=== PATIENT | female | born 1945 | race Caucasian/White ===

== ENCOUNTER → 2019-09-26 14:13 | Outpatient (BNVA) | payer MEDICARE, SELFPAY | PROVIDERS: Visit Provider Nurse Practitioner Family | DX: I10 Essential (primary) hypertension (principal); E11.9 Type 2 diabetes mellitus without complications; E78.5 Hyperlipidemia, unspecified | CPT/HCPCS: 80053; 80061; 82044; 83036; 84439; 84443 ==

== ENCOUNTER → 2020-10-27 09:46 | Outpatient (BNVA) | payer MEDICARE, SELFPAY | PROVIDERS: Visit Provider Nurse Practitioner Family | DX: E11.9 Type 2 diabetes mellitus without complications (principal); E78.5 Hyperlipidemia, unspecified; I10 Essential (primary) hypertension | CPT/HCPCS: 80053; 80061; 83036; 84439; 84443; 85025 ==

== ENCOUNTER → 2021-11-03 12:55 | Outpatient (BNVA) | payer MEDICARE, SELFPAY | PROVIDERS: Visit Provider Nurse Practitioner Family | DX: I10 Essential (primary) hypertension (principal); E11.9 Type 2 diabetes mellitus without complications; Z68.32 Body mass index [BMI] 32.0-32.9, adult | CPT/HCPCS: 80053; 80061; 82043; 83036; 84443; 85025 ==

== ENCOUNTER → 2022-11-09 16:37 | Outpatient (BNVA) | payer MEDICARE, SELFPAY | PROVIDERS: PCP Nurse Practitioner Family; Visit Provider Nurse Practitioner Family | DX: E11.9 Type 2 diabetes mellitus without complications (principal); I10 Essential (primary) hypertension | CPT/HCPCS: 80053; 80061; 82043; 83036; 84443 ==

== ENCOUNTER → 2024-02-18 11:30 | Outpatient (BNVA) | payer MEDICARE, SELFPAY | PROVIDERS: PCP Nurse Practitioner Family; Visit Provider Nurse Practitioner Family | DX: I10 Essential (primary) hypertension (principal); E11.9 Type 2 diabetes mellitus without complications | CPT/HCPCS: 80053; 80061; 82043; 83036 ==

== ENCOUNTER → 2024-09-19 10:00 | Outpatient (BNVA) | payer MEDICARE, SELFPAY | PROVIDERS: PCP Nurse Practitioner Family; Visit Provider Nurse Practitioner Family | DX: I10 Essential (primary) hypertension (principal); E11.9 Type 2 diabetes mellitus without complications; M25.561 Pain in right knee; G89.29 Other chronic pain | CPT/HCPCS: 80053; 80061; 82043; 83036 ==

== ENCOUNTER → 2024-09-26 10:54 | Outpatient (BNVA) | payer MEDICARE, SELFPAY | PROVIDERS: PCP Nurse Practitioner Family; Visit Provider Orthopaedic Surgery | DX: M25.561 Pain in right knee (principal); G89.29 Other chronic pain | CPT/HCPCS: 20610; 73560; 73565; 99204; J3301; J3490 ==

== ENCOUNTER → 2024-10-17 08:55 | Outpatient (BNVA) | payer MEDICARE, SELFPAY | PROVIDERS: PCP Nurse Practitioner Family; Visit Provider Orthopaedic Surgery | DX: M25.561 Pain in right knee (principal); G89.29 Other chronic pain | CPT/HCPCS: 99213 ==

== ENCOUNTER → 2024-12-30 09:32 | Outpatient (BNVA) | payer MEDICARE, SELFPAY | PROVIDERS: PCP Nurse Practitioner Family; Visit Provider Student in an Organized Health Care Education/Training Program | DX: M25.561 Pain in right knee (principal); G89.29 Other chronic pain | CPT/HCPCS: 99213 ==

== ENCOUNTER 2025-01-01 11:05 | Outpatient (CLI) | payer MEDICARE, SELFPAY ==
--- NOTE | 2025-01-01 16:00 | MR_ITS ---
WS: [id number] MRI RIGHT KNEE HISTORY: right knee pain COMPARISON: Radiograph 09/26/2024 Anterior cruciate ligament: Intact. Posterior cruciate ligament: Intact. Medial collateral ligament: Intact. Posterior lateral corner structures: Intact. Medial menisci: Intact. Normal signal, size and shape. Lateral meniscus: Intact. Normal signal, size and shape. Extensor mechanism: Distal quadriceps tendon and patellar tendons are intact. Fluid and soft tissue: Small Espana's cyst. No joint effusion. Osseous and articular structures: Patellofemoral compartment: Mild narrowing of the patellofemoral joint with intact cartilage. Medial compartment: Very mild narrowing of the medial compartment with fissuring of the cartilage. No marrow edema. Lateral compartment: Minimal narrowing of the lateral compartment. Lobulated low signal bone lesion in the femoral condyle measures 4.2 mm and likely a bone island. Incidental note is made of a bone infarct in the distal femoral diaphysis. Small amount of edema in the popliteus muscle near the tibiofibular articulation. MR/MR knee RT wo con* [id number] IMPRESSION: 1. No meniscal tear identified. 2. No joint effusion. 3. Small Espana's cyst. 4. Mild narrowing of the medial and lateral compartments. 5. Mild tibiofibular joint space narrowing with a small amount of adjacent teresita ma in the popliteus muscle. 6. Distal femoral diaphysis bone infarct.
== END 2025-01-01 11:06 | disposition home or self-care (01) ==
PROVIDERS: PCP Nurse Practitioner Family; Visit Provider Student in an Organized Health Care Education/Training Program
DX: M71.21 Synovial cyst of popliteal space [Baker], right knee (principal); M87.851 Other osteonecrosis, right femur; G89.29 Other chronic pain
CPT/HCPCS: 73721

== ENCOUNTER → 2025-01-27 11:08 | Outpatient (BNVA) | payer MEDICARE, SELFPAY | PROVIDERS: PCP Nurse Practitioner Family; Visit Provider Student in an Organized Health Care Education/Training Program | DX: M25.551 Pain in right hip (principal); M25.561 Pain in right knee; G89.29 Other chronic pain; M17.11 Unilateral primary osteoarthritis, right knee; Z09 Encounter for follow-up examination after completed treatment for conditions other than malignant neoplasm; M16.11 Unilateral primary osteoarthritis, right hip | CPT/HCPCS: 20610; 73502; 99214; J3301; J9999 ==

== ENCOUNTER → 2025-02-20 11:00 | Outpatient (BNVA) | payer MEDICARE, SELFPAY | PROVIDERS: PCP Nurse Practitioner Family; Visit Provider Student in an Organized Health Care Education/Training Program | DX: M16.11 Unilateral primary osteoarthritis, right hip (principal) | CPT/HCPCS: 20610; 77002; J3301; J9999 ==

== ENCOUNTER → 2025-04-29 10:34 | Outpatient (BNVA) | payer MEDICARE, SELFPAY | PROVIDERS: PCP Nurse Practitioner Family; Visit Provider Student in an Organized Health Care Education/Training Program | DX: M17.11 Unilateral primary osteoarthritis, right knee (principal); Z71.89 Other specified counseling | CPT/HCPCS: 20610; 99213; J3301; J9999 ==

== ENCOUNTER → 2025-05-27 13:28 | Outpatient (BNVA) | payer MEDICARE, SELFPAY | PROVIDERS: PCP Nurse Practitioner Family; Visit Provider Student in an Organized Health Care Education/Training Program | DX: M16.11 Unilateral primary osteoarthritis, right hip (principal) | CPT/HCPCS: 99214 ==

== ENCOUNTER → 2025-06-30 14:10 | Outpatient (BNVA) | payer MEDICARE, SELFPAY | PROVIDERS: PCP Nurse Practitioner Family; Visit Provider Physician Assistant | DX: Z01.818 Encounter for other preprocedural examination (principal); E11.9 Type 2 diabetes mellitus without complications | CPT/HCPCS: 36415; 80053; 81001; 83036; 85025 ==

== ENCOUNTER 2025-07-02 13:17 | Outpatient (CLI) | payer MEDICARE, SELFPAY ==
--- NOTE | 2025-07-02 13:45 | CT_ITS ---
WS: [id number] CT RIGHT hip for MOY procedure HISTORY: RIGHT TOTAL HIP ARTHROPLASTY Date: 07/02/2025 1:37 PM TECHNIQUE: Protocol for MOY total hip replacement has been obtained. This includes axial imaging from the hip joint through the knee joint. DLP: [id number] FINDINGS: Osteopenia. Joint arthritis sacroiliac joints. Facet arthropathy lower lumbar spine. Mild diffuse bladder wall thickening can be seen with chronic cystitis. Sigmoid diverticulosis. Tiny fat-containing umbilical hernia. Advanced arthritis RIGHT hip with subchondral cystic change and sclerosis. Vascular calcification. 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
== END 2025-07-02 13:18 | disposition home or self-care (01) ==
LOC: RAD 13:19
PROVIDERS: PCP Nurse Practitioner Family; Visit Provider Student in an Organized Health Care Education/Training Program
DX: M16.11 Unilateral primary osteoarthritis, right hip (principal)
CPT/HCPCS: 73700

== ENCOUNTER 2025-07-16 17:02 | Observation (INO) | payer MEDICARE, SELFPAY ==
[2025-07-16] VITALS (12 sets, daily range): BP systolic 101–168; BP diastolic 54–88; PULSE 56–73; RESP 12–18; TEMP 36.1–36.7; O2SAT 97–100; BMI 28.4
[2025-07-16] MEDS: acetaminophen 1,000 MG/100 ML PIGGYBACK 400 MG IV ×2 (09:35→18:02)
[2025-07-16 10:04] LABS: Hematocrit 39.9 % (36-47); Hemoglobin 13.90 g/dL (11.27-16.99); Mean Corpuscular HGB Conc 34.8 g/dL (30-55); Mean Corpuscular Hemoglobin 32.9 pg (27-33); Mean Corpuscular Volume 94.3 fl (85-98); Nucleated Red Blood Cells % 0 %; Platelet Count 345 10^3/cmm (157-399); Red Blood Count 4.23 10^6/uL (3.85-5.65); White Blood Count 8.04 10^3/uL (3.29-11.43)
[2025-07-16 10:25] LABS: Anion Gap 14.8 (5-19); Blood Urea Nitrogen 11 mg/dL (8-23); Calcium 10.0 mg/dL (8.5-10.5); Carbon Dioxide 27 mmol/L (22-29); Chloride 105 mmol/L (98-107); Glucose 111 mg/dL (65-115); Osmolality Calculated 296 mOsm/kg (285-295); Potassium 3.8 mmol/L (3.5-5.1); Sodium 143 mmol/L (136-145)
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
[2025-07-16] MEDS: fentaNYL 50 mcg/mL INJ 2mL IVP (11:16)
--- NOTE | 2025-07-16 13:12 | W.PM.OPSUD ---
Surgery/Procedure H&P Update DATE OF PROCEDURE: July 16, 2025 DATE H&P PERFORMED: 06/30/25 H&P UPDATE INFORMATION: I have reviewed H&P completed within last 30 days, I have examined patient prior to procedure, No changes to prior documentation and Risks and benefits of the procedure reviewed CHANGES TO PREVIOUS DOCUMENTATION: Please refer to anesthesia's preoperative evaluation for heart and lung findings Patient denies any change in health since last office visit last injection was over 90 days out. Is Patient is cleared the preoperative clearance process and ready to proceed with surgical intervention for right total hip arthroplasty?Aneesh robotic assisted. Patient once again understands the ins and outs procedure the risk benefits complication alternatives surgical nonsurgical treatment options. Understanding risk of surgery patient like to proceed with surgical invention. All questions answered at this time. PREOP DIAGNOSIS: Right hip DJD PRIMARY INDICATION FOR PROCEDURE: Right hip DJD PLANNED PROCEDURE: Operation Date: 07/16/25 12:35 Proposed Procedures p Aneesh Robot Total Hip Arthroplasty(Right) - Ethan Blevins DO
[2025-07-16] MEDS: ceFAZolin 2,000 MG in sodium chloride 0.9% (plus) 50 ML 100 MG IV ×2 (14:11→21:54)
[2025-07-16] MEDS: tranexamic acid 1,000 MG/100 ML PREMIX 600 MG IV (14:30)
--- NOTE | 2025-07-16 17:04 | XRR_ITS ---
PROCEDURE INFORMATION: Exam: XR Right Hip Exam date and time: 07/16/2025 5:11 PM Age: 79 years old Clinical indication: Screening exam; Post op; Prior surgery; Surgery date: Post-operative (0-2 days); Surgery type: RT agustina; Additional info: Post op agustina, do in pacu TECHNIQUE: Imaging protocol: Radiologic exam of the right hip. Views: 2 or 3 views hip with pelvis when performed. COMPARISON: CT hip RT [facility] [id number] 07/02/2025 1:42 PM FINDINGS: Bones/joints: Right total hip arthroplasty. The hardware appears intact. No dislocation. Degenerative and scoliotic changes of the visualized spine. The sacrum overall appears intact. Moderate left hip joint degenerative changes. Soft tissues: Postsurgical changes of the overlying soft tissues. XR/XR hip RT 2-3V wo/w pel* [id number] IMPRESSION: As above.
--- NOTE | 2025-07-16 17:07 | P.BOP_ITS ---
Date of Procedure: 07/16/2025 Surgeon: Ethan Blevins DO Sales And Service Officer(s): Desean Blevins PA-C Procedure(s) performed: Right total hip arthroplasty?Aneesh robotic assisted Findings of the procedure(s): Procedure went as planned without issues or complications taken recovery stable condition Estimated blood loss: 200 mL Specimen(s) removed: Femoral head removed as well as acetabular reamings Post-operative diagnosis: Right hip DJD
--- NOTE | 2025-07-16 17:10 | P.OP_ITS ---
Operative Report Date of procedure: July 16, 2025 Surgeon: Ethan Blevins DO Auto Suspension And Steering Mechanic: Desean Blevins PA-C: PA was necessary for assistance in this case with leg positioning, assistance on hip reductions and implantation, retraction and protection of neurovascular structures as well as assistance in implantation wound closure and dressing application. Procedure: Preop Diagnosis?Right hip degenerative joint disease Post-op diagnosis: Right hip degenerative joint disease Procedure done: Right total hip arthroplasty?robotic assisted Aneesh?posterior?approach Implants: [place] total hip arthroplasty implants 52 mm cluster hole acetabular shell 6.5 mm x (20 mm) acetabular screw Alpha code E MDM cementless metal liner [place] insignia hip stem high offset size 5 Alpha code E MDM -4 mm head Surgeon: Ethan Blevins DO Estimated blood loss: 200 mL IV fluids: 2700 mL Urine output: 300 mL Complications: None Condition: stable Disposition: floor Brief History: Patient's been seen and worked up by myself is a pleasant 79-year-old female in the outpatient setting and findings consistent with Right hip degenerative joint disease. She has failed conservative treatment this is causing her severe pain and decreased mobility. We talked about his treatment options as far as nonoperative and operative intervention. he ultimately through shared decision- making would like to proceed with a Right total hip arthroplasty?Aneesh robotic assisted posterior approach. we detailed out risk benefits complications alternatives to surgical and nonsurgical treatment options. Understanding risk for surgery patient elects to proceed with Right total hip arthroplasty robotic assisted Aneesh utilizing a?posterior?approach. Consent signed with patient in preoperative area. all questions answered. pt elects proceed with surgery today. Procedure: Patient was seen evaluate in preoperative holding area.? Consent was reviewed and signed with patient.? Correct extremity was then marked.? Patient seen evaluate by anesthesia department once cleared for surgery pt was taken back to the operative suite.? Patient underwent spinal anesthesia per the anesthesia department.? This point time pt was then placed on the operative suite and table.? Pt was then placed in lateral decubitus patient worked with the Right hip up.? Patient was secured in the lateral decubitus position with pegboard. All bony prominences well-padded he was properly secured to the bed.? At this point time the Right lower extremity was then prepped and draped in standard orthopedic fashion with care not to drape out the iliac wing for pelvic array placement.? Final timeout performed.? Patient received appropriate preoperative antibiotics. Started off with establishment of my pelvic array pins.? A small longitudinal incision was made directly over the iliac wing.? Sharp scalpel excision through skin and subcutaneous tissue directly onto bone.? Next I then loaded my pelvic p in.? This was then drilled through the iliac wing corridor with excellent fixation.? Next I then loaded the guide which was placed directly onto bone and then subsequently placed 2 more pins to secure fixation.? Next the pelvic array was then sent had excellent visualization with the Aneesh robot and was secured. EKG pad was placed on the distal lateral aspect of the femur and sterile aseptic technique and use as my distal reference point. Next I proceeded with my standard?posterior?approach.? Sharp scalpel through skin and subcutaneous tissue this was centered over the greater trochanter.? I then utilized a [place] elevator over the gluteus starr fascia.? Next the fascia was then split longitudinally with bipolar electrocautery.? Next a Charnley retractor was then placed.? All bone was then placed into the abductors.? A standard full-thickness release of the piriformis and the short external rotators along with the capsule to grade 1 full thick sleeve for later repair was then placed straight down to the lesser trochanter.? Lesser trochanter was then subsequently identified.? Prior to dislocating the hip we then placed our greater trochanter femur checkpoint.? We marked our appropriate checkpoint for referencing on pelvic array.? At this point in time we then established both of our checkpoints as well as referencing for leg lengths I utilized the EKG pad as my distal reference point. The legs were marked and traced to have appropriate position on the drapes to allow for accurate reading.? Preoperative leg lengths set. Once this was then established I then proceeded with dislocation of the femoral head.? At this point Hohmann's were then placed superiorly and inferiorly along the femoral neck..? The sciatic nerve was protected throughout this case.? At this point time I then utilized the Aneesh robot and referencing point to reference different aspects along the femoral head and neck for my appropriate neck length.? These were referenced on the inferior mid substance as well as up into the superior shoulder of the femoral neck.? This marked my oscillating saw was used to make my femoral neck cut.? Femoral head was then removed. Next the leg was placed in appropriate position and my anterior and?posterior?acetabular retractors then placed.? Next I excised the labrum and then remove the pulvinar.? I did do a small release of the inferior capsule which was severely taut to allow for easier placement of my reamers as well as reduction.? Acetabulum was thoroughly irrigated. At this point in time keeping my retractors in place I subsequently loaded up the Singularu robot for my acetabular reaming.?? Next I then set my 52 reamer under the Aneesh robot and subsequently held this with appropriate preplanned preop planned version of 40 degrees of abduction angle as well as 20 degrees of anteversion.? I then subsequently reamed this to the appropriate depth with 52 mm reamer.? We then checked the reamings made small adjustments to medialize slightly more to get in through the sclerotic bone and after this was done we had excellent medialization and bleeding bone for press-fit fixation we opened up the acetabular shell clusterhole of the 50 to mm Luis[place] this was then loaded onto my impacting system and then I subsequently impacted this to appropriate depth.? This was then removed from the robot and I used the Aneesh probe at the center to confirm on the CT scan?that this was down on bone which it was.? Next I then drilled and placed 1 acetabular screws with excellent fixation these were drilled and measured to be 20 mm this was in the?posterior?superior aspect of the acetabulum had excellent bite and fixation.? The cup was solid and had excellent press-fit fixation. next, opened the alpha code D MDM cementless liner then subsequently placed in appropriate position and impacted into place.? ? At this point time I then utilized a small rongeur to clear off the shoulder of the femoral neck to clear out the soft tissue envelope for my box osteotome.? Next box osteotome was used a canal finder was placed as well as a lateral lysing rattail rasp.? Once I was appropriately lateralized I then sequentially broached up to a size 5 femoral stem. this was impacted to appropriate depth. This had excellent rotational stability and fixation. We started off with a -4 mm femoral neck. We utilized high offset [place] insignia hip stem. This point I loaded a -4 mm neck and subsequently reduced the hip.? At this point in time the hip was taken through range of motion before evaluating with the robot on leg lengths.?? The hip was taken through range of motion and had excellent stability with hip flexion and internal rotation with no evidence of instability stable shuck. this point time utilized the Aneesh probe from our femur checkpoint down to her distal checkpoint. Patient at this point in time preoperatively had 22 mm she was short comparative to her contralateral hip. At this point in time we were able to lengthen her roughly to 15 mm. The standard was too tight and as a result being at -4 mm had her best improvement of leg lengths but not over correcting as well as had good muscle tensioning and excellent stability at this point time I called for my final implants as I was satisfied with this trial set. Satisfied with this trial implants, at this point I dislocated the hip and then called for my final implants with excellent stability in all planes.? Opened up a [place] insignia high offset hip stem size 5 My trials were then removed and then subsequently impacted my [place] insignia hip stem to the same level.? This point in time I trialed up to a -4mm neck length which helped match with Aneesh robotic assistance had appropriate leg lengths comparative to the contralateral hip and this was confirmed clinically as well as had excellent stability I felt as though this was best combination with leg lengths being equal as well as with stability and elected for the final -4mm MDM femoral head. Final MDM femoral head component was then opened and the trunnion was dried and this was impacted with excellent fixation and the hip was subsequently reduced.? We measured our final leg lengths which were appropriate patient had excellent stability in all ranges of motion.? This point time a robotic pins and checkpoints were removed.? I remove the femur checkpoint as well as my pelvic array and iliac wing pins.? Appropriate counts were then made.? This point time thoroughly irrigated the wound bed with pulse lavage.? Vancomycin powder was then sprinkled into the wound bed.? I then performed a standard capsular and external rotator repair utilizing #5 Ethibond and this was tied and repaired through bone tunnels hip, sciatic nerve was protected throughout the procedure and inspect and intact at the end of the procedure. Was then kept in abduction external rotation and subsequently closed the fascial layer with Ethibond suture as well as running strata fix suture.? I then closed the deep subcutaneous layer as well as superficial subcutaneous layer with running strata fix suture as well as 3-0strata fix for skin.? Reillyo glue dressing was then placed over the skin.? I then irrigated the pelvic array pin site.? There is were then closed with interrupted 0, 2-0 Vicryl suture and Monocryl as well as Prineo glue for the skin.? Incisions were then covered with fran and Silverlon dressing.? Patient was awakened from anesthesia and taken to PACU in stable condition Disposition: Patient taken to PACU in stable condition.? Patient will receive appropriate discharge instructions as well as DVT prophylaxis and pain medication.? Patient will be admitted to the floor for observation should be evaluated by the internal medicine team for medical management.? Patient received appropriate DVT prophylaxis as well as pain medication PT/OT weightbearing as tolerated Right lower extremity with?posterior?hip precautions, Postoperative Abx and TXA.? We will follow-up with patient in the office in 2 weeks.? Patient understands agrees with current plan.? All questions answered.
--- NOTE | 2025-07-16 17:24 | PM.PACU ---
PACU note Narrative: Patient seen and examined in PACU recovery she is recovering well no issues or complications her spinal anesthesia still on and off effect. She is able to just barely start to wiggle her toes and endorsing she started to have returning of feeling but unable to assess full motor or sensory secondary to patient's spinal anesthesia still being in affect. Distal pulses are palpable right lower extremity warm well-perfused brisk capillary refill less than 2 seconds compartments are soft and compressible. Dressings on in place clean dry and intact. Exam: awake Disposition: admitted
--- NOTE | 2025-07-16 17:30 | ANE.PACU2 ---
Inpatient post-anesthesia follow up: Airway intact: Yes Vital signs: Temperature 98.0 F Pulse Rate 100 Respiratory Rate 14 Blood Pressure 149/81 Pulse Oximetry 94 Oxygen Delivery Me thod Room Air Oxygen Flow Rate 3 Fraction of Inspir ed Oxygen Hydration adequate: Yes Nausea and vomiting: No Pain level: 1 Mental status: Baseline
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
[2025-07-16] MEDS: oxyCODONE 5 mg IR Tab/Cap PO (19:47)
[2025-07-16] MEDS: HYDROmorphone 0.5 MG/0.5 ML INJ IVP (21:55)
[2025-07-16] MEDS: chlorhexidine gluconate 0.12% Btl 473 mL 30 ML MUCOUS MEM (21:58)
[2025-07-17] MEDS: acetaminophen 1,000 MG/100 ML PIGGYBACK 400 MG IV ×2 (00:57→09:32)
[2025-07-17 01:07] VITALS: RESP 16
[2025-07-17] MEDS: oxyCODONE 5 mg IR Tab/Cap PO ×2 (01:07→05:25)
[2025-07-17 03:50] VITALS: BP 112/67; PULSE 71; RESP 14; TEMP 36.7; O2SAT 99
[2025-07-17] MEDS: sennosides-docusate Tablet 2 TAB PO (04:34)
[2025-07-17] MEDS: multivitamin therapeutic Tablet 1 TAB PO (04:34)
[2025-07-17] MEDS: mupirocin oint 22 gm 1 APPLIC NASAL (04:35)
[2025-07-17] MEDS: calcium carb-vit d 600mg/400unit 1 Tablet 1 EACH PO (04:35)
[2025-07-17] MEDS: chlorhexidine gluconate 0.12% Btl 473 mL 30 ML MUCOUS MEM ×2 (04:35→12:31)
[2025-07-17 05:22] VITALS: BMI 29.2
[2025-07-17 05:25] VITALS: RESP 17
[2025-07-17] MEDS: ceFAZolin 2,000 MG in sodium chloride 0.9% (plus) 50 ML 100 MG IV (05:26)
[2025-07-17 05:31] LABS: Hematocrit 33.9 % (36-47); Hemoglobin 11.40 g/dL (11.27-16.99); Mean Corpuscular HGB Conc 33.6 g/dL (30-55); Mean Corpuscular Hemoglobin 32.2 pg (27-33); Mean Corpuscular Volume 95.8 fl (85-98); Nucleated Red Blood Cells % 0 %; Platelet Count 207 10^3/cmm (157-399); Red Blood Count 3.54 10^6/uL (3.85-5.65); White Blood Count 8.40 10^3/uL (3.29-11.43)
[2025-07-17 05:48] LABS: Estmated Average Glucose 114; Hemoglobin A1C 5.6 % (4.0-6.0)
[2025-07-17 05:53] LABS: Blood Urea Nitrogen 10 mg/dL (8-23); Calcium 8.7 mg/dL (8.5-10.5); Carbon Dioxide 23 mmol/L (22-29); Chloride 104 mmol/L (98-107); Cholesterol 192 mg/dL (0-200); Glucose 128 mg/dL (65-115); HDL Cholesterol 54 mg/dL (60-100); Osmolality Calculated 285 mOsm/kg (285-295); Sodium 137 mmol/L (136-145); Triglycerides 118 mg/dL (0-150)
[2025-07-17 06:02] LABS: Anion Gap 14.2 (5-19); Potassium 4.2 mmol/L (3.5-5.1)
--- NOTE | 2025-07-17 07:26 | PM.PN ---
Subjective Subjective: Patient is a very pleasant 79-year-old female seen and examined bedside on hospital rounds today. Patient states some mild hip pain but denies any shortness of breath or new or worsening symptoms. Patient was working with physical therapy, however had multiple cues for positioning, and forgetting directions. Patient and her spouse both refused [facility] facility and home health. Great concerns on patient discharging without some sort of outpatient physical therapy or home health interventions. Case management is working with patient and her spouse on setting up home health, there are some financial concerns. We will re-visit once cost information provided to patient/family. Stable vital signs blood pressure 128/74, pulse 70, respirations 16, temp 97.8, O2 sat 95% on room air. Reviewed labs WBC 8.40, hemoglobin 11.40, creatinine 0.6, BUN 10, very normal. A1c 5.6. Vitals/I&O/Wt Last Vital Signs Temp 98.1 F 07/17/25 03:50 Pulse 71 07/17/25 03:50 Resp 17 07/17/25 05:25 BP 112/67 07/17/25 03:50 Pulse Ox 99 07/17/25 03:50 O2 Del Method Room Air 07/16/25 18:45 O2 Flow Rate 3 07/16/25 17:18 07/16/25 07/17/25 07/17/25 22:59 06:59 14:59 Intake Total 555.5 / 655.5 1150 / 1805.5 Output Total 200 / 200 1325 / 1525 Balance 355.5 / 455.5 -175 / 280.5 Weight last 48 hrs Weight 82.1 kg Weight 79.832 kg Weight 79.832 kg Physical Exam Narrative: General: A&Ox4, on room air, with mild right hip pain. HEENT: Normo-cephalic, atraumatic, grossly unremarkable exam Cardio: NSR, normal S1-S2 without any murmurs, rubs, or gallops and JVD normal Respiratory: Clear breathing on auscultation w/o any wheezes, stridor, rhonchi GI: Abd soft, non-tender, non-distended, normo-active bowel sounds present Neuro: Moves all extremities, no sensory deficits, Normal speech Behavior: Appropriate and cooperative Extremities: Adequate palpable pulses. right hip post op area with dressing in place, clear for any hematoma, or any signs of infection, no noticeable drainage, site appears non concerning, distal and proximal pulses adequate Urinary Catheter Management: Lopez: Cath Placed During This Visit: yes, but has since been removed by the nurse Reason for Continuing Indwelling Catheter: Decision to DC Catheter Urinary Catheter Date of Insertion: 07/16/25 Urinary Catheter Time of Insertion: 14:30 Date Urinary Catheter Removed: 07/17/25 Time Urinary Catheter Discontinued: 06:52 Data 07/17/25 04:50 07/17/25 04:50 A&P Assessment and plan 1. S/P total right hip arthroplasty: - Management Per attending Orthopedic surgeon - OT/PT evaluation and recommendations appreciated - Continue incentive spirometry - Hip precautions - Multi-modal pain control - Appreciate case management in coordination of discharge planning 2. Arteriosclerotic heart disease (ASHD): - Continue cardioprotective medications including aspirin and statin 3. Diabetes mellitus: - Holding metformin, resume at discharge - Medium dose SSI, POC - A1c 5.6 4. Essential (primary) hypertension: - Blood pressure stable 128/74 - Continue home dosing lisinopril and metoprolol 5. Dyslipidemia: - Lipid panel: Triglycerides 118, cholesterol 192, LDL 114, HDL 54 - Continue formulary statin Plan: CODE STATUS: Full code VTE prophylaxis: Eliquis 2.5 mg twice daily as per ortho PDMP PDMP Reviewed: Not Reviewed Attestations Medical Necessity Statement*: Per attending Coding Level of Care Code 76444 Diagnoses S/P total right hip arthroplasty Z96.641 Arteriosclerotic heart disease (ASHD) I25.10 Diabetes mellitus E11.9 Essential (primary) hypertension I10 Dyslipidemia E78.5
[2025-07-17 07:59] VITALS: BP 128/74; PULSE 70; RESP 16; TEMP 36.6; O2SAT 95
[2025-07-17 11:44] VITALS: BP 149/81; PULSE 100; RESP 14; TEMP 36.7; O2SAT 94
--- NOTE | 2025-07-17 13:22 | PM.DCS ---
Discharge Providers Date of Admission: 07/16/25 17:02 Date of Discharge: July 17, 2025 Attending Provider at Admission: Ethan Blevins DO Attending Provider at Discharge: Ethan Blevins DO Consults: Hospitalist Primary Care Provider: Yennifer Howard NP Diagnoses at Discharge Discharge Diagnosis 1. S/P total right hip arthroplasty: 2. Arteriosclerotic heart disease (ASHD): 3. Type 2 diabetes mellitus without complication, without long-term current use of insulin: 4. Essential (primary) hypertension: 5. Dyslipidemia: Reason for Visit Reason for Visit: M16.11 Brief History: Status post right total hip arthroplasty?Aneesh robotic assisted Hospital Course Hospital Course Patient was brought to the hospital through the preoperative holding area with plan for right total hip arthroplasty for [right] hip dengerative joint disease. Once cleared by anesthesia for surgery subsequently was taken back to the operative suite underwent anesthesia per the anesthesia department and then underwent [right] total hip arthroplasty with Aneesh robotic assistance posterior approach without any complications. Patient was then subsequently taken back to PACU in stable condition recovering well. Once recovered, patient was then subsequently admitted to the floor postoperatively. Internal medicine was consulted for medical management assistance. Patient weightbearing as tolerated to the right lower extremity, posterior hip precautions. PT/OT. Pain control. DVT prophylaxis. Postoperative antibiotics and TXA. dressing was change as needed. Internal medicine was on board and appreciate their medical management and assistance. Pt was determined on postoperative day [ 1] the patient was stable for discharge from orthopedic as well as internal medicine standpoint. Patient's labs were monitored daily. Patient will receive appropriate pain medication as well as DVT prophylaxis postoperatively. Appropriate discharge instructions as well. Patient was then discharged in stable condition. Patient will discharge home. Pt will follow-up with Orthopedics in the office in 2 weeks. Patient understands and agrees with current plan. All questions answered. Understands there is any issues or concerns and contact the office. Physical Exam Narrative: Right hip examination: Dressings on in place, clean dry and intact. No evidence of saturation. Patient has normal postoperative swelling and tenderness to palpation to the hip. Compartments are soft compressible,'s calf soft and nontender. Sensations intact to light touch distally. Distal pulses are palpable. Patient is able to wiggle toes as well as plantarflex and dorsiflex ankle. Urinary Catheter Management: Lopez: Cath Placed During This Visit: yes, but has since been removed by the nurse Reason for Continuing Indwelling Catheter: Decision to DC Catheter Urinary Catheter Date of Insertion: 07/16/25 Urinary Catheter Time of Insertion: 14:30 Date Urinary Catheter Removed: 07/17/25 Time Urinary Catheter Discontinued: 06:52 Discharge Data Studies Completed and Pending Completed Studies During Hospitalization Category Date Time Status XR hip RT 2-3V wo/w pel* [id number] Routine Exams 07/16/25 17:04 Completed Pending at discharge Category Date Time Status Basic Metabolic Panel AM LABS Lab 07/18/25 04:00 Ordered Basic Metabolic Panel AM LABS Lab 07/19/25 04:00 Ordered Complete Blood Count w/Auto AM LABS Lab 07/18/25 04:00 Ordered Complete Blood Count w/Auto AM LABS Lab 07/19/25 04:00 Ordered Radiology Impressions Hip/Pelvis X-Ray 07/16/25 17:04 IMPRESSION: As above. Laboratory Results WBC 8.40 10^3/uL (3.29-11.43) 07/17/25 04:50 RBC 3.54 10^6/uL (3.85-5.65) L 07/17/25 04:50 Hgb 11.40 g/dL (11.27-16.99) 07/17/25 04:50 Hct 33.9 % (36-47) L 07/17/25 04:50 MCV 95.8 fl (85-98) 07/17/25 04:50 MCH 32.2 pg (27-33) 07/17/25 04:50 MCHC 33.6 g/dL (30-55) 07/17/25 04:50 RDW 12.2 % (12.1-15.1) 07/17/25 04:50 Plt Count 207 10^3/cmm (157-399) D 07/17/25 04:50 MPV 9.6 fL (7.4-10.4) 07/17/25 04:50 Neut % (Auto) 74.0 % 07/17/25 04:50 Lymph % (Auto) 15.5 % 07/17/25 04:50 Mckean % (Auto) 9.2 % 07/17/25 04:50 Eos % (Auto) 0.4 % 07/17/25 04:50 Baso % (Auto) 0.4 % 07/17/25 04:50 Neut # (Auto) 6.23 10^3/uL (1.8-7.7) 07/17/25 04:50 Lymph # (Auto) 1.3 10^3/uL (0.8-4.8) 07/17/25 04:50 Mckean # (Auto) 0.8 10^3/uL (0.2-0.9) 07/17/25 04:50 Eos # (Auto) 0.0 10^3/uL (0.0-0.8) 07/17/25 04:50 Baso # (Auto) 0.0 10^3/uL (0.0-0.1) 07/17/25 04:50 Nucleated RBC % (auto) 0 % 07/17/25 04:50 Nucleated RBCs # 0.0 /100WBC 07/17/25 04:50 Sodium 137 mmol/L (136-145) 07/17/25 04:50 Potassium 4.2 mmol/L (3.5-5.1) 07/17/25 04:50 Chloride 104 mmol/L (98-107) 07/17/25 04:50 Carbon Dioxide 23 mmol/L (22-29) 07/17/25 04:50 Anion Gap 14.2 (5-19) 07/17/25 04:50 BUN 10 mg/dL (8-23) 07/17/25 04:50 Creatinine 0.6 mg/dL (0.5-0.9) 07/17/25 04:50 GFR Calculation Not Reportable 07/17/25 04:50 Glucose 128 mg/dL (65-115) H 07/17/25 04:50 POC Glucose 164 mg/dL (70-110) H 07/17/25 11:21 Estimat Average Glucose 114 07/17/25 04:50 Hemoglobin A1c 5.6 % (4.0-6.0) 07/17/25 04:50 Calculated Osmolality 285 mOsm/kg (285-295) 07/17/25 04:50 Calcium 8.7 mg/dL (8.5-10.5) 07/17/25 04:50 Triglycerides 118 mg/dL (0-150) 07/17/25 04:50 Cholesterol 192 mg/dL (0-200) 07/17/25 04:50 LDL Cholesterol, Calc 114 mg/dL (50-129) 07/17/25 04:50 HDL Cholesterol 54 mg/dL (60-100) L 07/17/25 04:50 LDL/HDL Ratio 2.11 RATIO (0.00-3.22) 07/17/25 04:50 Cholesterol/HDL Ratio 3.56 mg/dL (0.0-4.40) 07/17/25 04:50 Blood Type O Positive 07/16/25 09:40 Rho(D) Type Rh positive 07/16/25 09:40 Antibody Screen Negative 07/16/25 09:40 Vitals Last Vital Signs Temp 98.0 F 07/17/25 11:44 Pulse 100 07/17/25 11:44 Resp 14 07/17/25 11:44 BP 149/81 07/17/25 11:44 Pulse Ox 94 07/17/25 11:44 O2 Del Method Room Air 07/17/25 11:44 O2 Flow Rate 3 07/16/25 17:18 Discharge Plan Discharge Patient Disposition: Home Condition: Stable Prescriptions: New Eliquis 2.5 mg tablet 2.5 mg PO BID 35 Days Qty: 70 0RF cefadroxil 500 mg capsule 500 mg PO BID 7 Days Qty: 14 0RF oxycodone 5 mg tablet 5 mg PO Q6H PRN (Reason: pain postop) 7 Days Qty: 28 0RF calcium carbonate-vitamin D3 [Calcium 600 + D(3)] 600 mg-10 mcg (400 unit) tablet 1 tab PO DAILY 30 Days Qty: 30 0RF Continued aspirin [Noemí Low Dose Aspirin] 81 mg tablet,delayed release (DR/EC) 81 mg PO QDAY metformin 500 mg tablet 500 mg PO BID Rx Instructions: TAKE ONE TABLET BY MOUTH TWICE DAILY lisinopril 20 mg tablet 20 mg PO DAILY Rx Instructions: TAKE ONE TABLET BY MOUTH ONCE DAILY simvastatin 40 mg tablet 40 mg PO BEDTIME Rx Instructions: TAKE ONE TABLET BY MOUTH AT BEDTIME metoprolol tartrate 50 mg tablet 50 mg PO BID Rx Instructions: TAKE ONE TABLET BY MOUTH TWICE DAILY Held meloxicam 15 mg tablet 15 mg PO DAILY Hold Instructions: Resume on 07/31/25. Rx Instructions: TAKE ONE TABLET BY MOUTH ONCE DAILY [employer] OK for DC: Orthopedics Discharge Order = DC NOW: Discharge Order (Routine); Ordered 07/17/25 Ordered By: Ariella Ga Referrals: Ethan Blevins DO [Physician, Orthopedics] - 08/04/25 11:00 am Discharge Diet: Regular Discharge Activity: Limit activity as instructed and Use walker/crutches as instructed Patient Instructions: Cefadroxil (By mouth), Oxycodone, Rapid Release (By mouth), Apixaban (By mouth), Acute Wound Care (DC), Total Hip Replacement (DC), Post Anesthesia Care Activity Restrictions/Additional Instructions: Orthopedic discharge instructions: Main hip incision on the outside of your hip Fran Dressing--Keep dressing on and dry. Would recommend sponge baths for the first 2 weeks to keep bandage from getting wet, if dressing gets more than 50% saturated on you can remove and put new fran dressing. Dressing will stay on until follow up appt in 2 weeks. The battery pack for the dressing will at 5-7 days. Battery pack can be removed and discarded once batteries . Weight-bear as tolerated to operative lower extremity upper dressing is silverlon can leave on for a week can remove clean with warm soapy water pat dry and redress with a new Silverlon dressing will be given by the nursing staff prior to your discharge, then leave this on in place until your 2 week post op. Posterior hip precautions as instructed by physical therapy--avoid hip flexion past 90 degrees, adduction, avoid internal rotation do not cross midline with your right hip When sleeping or lying in bed in supine position use abduction pillow to prevent legs from crossing midline Ice as needed for pain and swelling Take pain medication as prescribed Take antinausea medication as needed Take antibiotic as prescribed May supplement for pain with Tylenol [id number] as needed(1000 mg every 8 hours-do not exceed more than 3000mg in 24-hour period) Supplement with Citracal vitamin D for bone health and healing Pain medication can cause constipation. take [id number] stool softeners and or MiraLAX. Take blood thinner as prescribed (Eliquis) Follow-up in the orthopedic office in 2 weeks Contact the office for any questions or concerns Discharge Attestations Time Spent in Discharge Care*: less than 30 min Quality Metrics Clinical Quality Measures [ No reported AMI, CVA or VTE this stay] Coding Level of Care Code Acute Code for Chg Fwd Diagnoses S/P total right hip arthroplasty Z96.641 Arteriosclerotic heart disease (ASHD) I25.10 Type 2 diabetes mellitus without complication, without long-term current use of insulin E11.9 Diabetes mellitus complication status: without complication Diabetes mellitus usp insulin use: without spray painter helper use Diabetes mellitus type: type 2 Essential (primary) hypertension I10 Dyslipidemia E78.5
[2025-07-17 14:49] VITALS: BP 149/81; PULSE 100; RESP 14; TEMP 36.7; O2SAT 94
== END 2025-07-17 14:50 | disposition home or self-care (01) ==
LOC: MEDSURG 17:02
PROVIDERS: Physician Assistant; Admitting Provider Student in an Organized Health Care Education/Training Program; PCP Nurse Practitioner Family; Visit Provider Student in an Organized Health Care Education/Training Program
PROC: 8E0Y0CZ Robotic Assisted Procedure of Lower Extremity, Open Approach (ICD-10-PCS; CPT 27130; principal; 2025-07-16 12:35)
DX: M16.11 Unilateral primary osteoarthritis, right hip (principal); I25.10 Atherosclerotic heart disease of native coronary artery without angina pectoris; E11.9 Type 2 diabetes mellitus without complications; I10 Essential (primary) hypertension; E78.5 Hyperlipidemia, unspecified; Z79.82 Long term (current) use of aspirin; Z79.84 Long term (current) use of oral hypoglycemic drugs; Z95.5 Presence of coronary angioplasty implant and graft
CPT/HCPCS: 27130; 20985; 36415; 36416; 51702; 73502; 80048; 80061; 82962; 83036; 85025; 86850; 86900; 96372; 97110; 97116; 97161; 97165; C1713; C1776; G0378; J0131; J0690; J1171; J1815; J2250; J2704; J3010; J3373; J7030; J7120; J9999